=== PATIENT | male | born 1950 | race Caucasian/White ===

== ENCOUNTER → 2024-10-28 | Outpatient (CLI) | payer OTHER ==
--- NOTE | 2024-10-28 15:14 | HMCIMG ---
CT heart saver calcium scoring CT Dose Index (CTDI): 13.80 mGy Dose Length Product (DLP): 173.4 total Findings: Calcium score 0 No identifiable calcification. This CT scan is not a complete chest CT. Covered portion is reviewed for incidental findings. No incidental findings seen. Impression: Calcium score as above. Calcium score reference table: 0: no identifiable calcification 1-10: minimal identifiable calcification 11-100: Mild calcification 101- 400: Moderate calcification 401 and above: Significant calcification Automated exposure control and adaptive statistical iterative reconstruction were utilized as dose reduction techniques.
--- NOTE | 2024-11-04 19:43 | CARDIOLOGY ---
RAD REPORT: CORNMELBETA CT ANGIO RADIOLOGY REPORT: CORONARY CT ANGIOGRAPHY DATE: Nov 04, 2024 QUALITY: Excellent CLINICAL HISTORY AND INDICATION: [coronary artery bypass graft patency ] TECHNIQUE: After obtaining a preliminary customer care associate image, contrast imaging performed on an [employer] [id number] scanner. A dedicated, limited window, coronary imaging protocol was used, with single breath-hold, retrospective ECG gating, and automated arrhythmia rejection. 100 cc of low osmolar contrast agent: Omnipaque 350 was delivered via a 18-gauge IV catheter in the right antecubital fossa, using a power injector and followed by 60 cc of normal saline bolus as a chaser. Collimated images were reformatted at 0.5 mm intervals, and sent to an offline independent workstation for interpretation, using 3D anatomic reconstructions: Curved multiplanar reconstructions, maximum intensity projections, and multiplan ar imaging. No metoprolol was administered prior to scanning due to low baseline heart rate. 0.8 mg SL nitroglycerin was given. CORONARY ARTERY DESCRIPTIONS: The coronary arteries arise in normal position. Left main coronary artery: Normal caliber vessel that bifurcates into the LAD and LCx. No stenosis. Left anterior descending coronary artery: Normal caliber vessel and gives rise to diagonal and septal branches. Severe proximal to mid LAD stenosis. Subtotally occluded ostial to proximal D1. Left circumflex coronary artery: Normal caliber, nondominant and gives rise to a large OM branch. There is calcified plaque in the proximal LCx with 20-30% stenosis. There is mixed calcified and noncalcified plaque in the ostial OM with 70% stenosis. Right coronary artery: Large, dominant vessel giving rise to the PL and PDA branches. There is mixed calcified and noncalcified plaque in the proximal RCA with 50% stenosis. CORONARY ARTERY BYPASS GRAFT DESCRIPTIONS: Patent MONTES DE OCA to LAD. Patent SVG to D1. Thoracic Aorta: Normal diameter. Sharmila Bolton MD [facility] SHARMILA BOLTON MD Nov 04, 2024 19:43
== END | disposition home or self-care (01) ==
LOC: RAH 12:11
PROVIDERS: ATTEND Internal Medicine Cardiovascular Disease
DX: Z13.6 Encounter for screening for cardiovascular disorders (principal); R07.9 Chest pain, unspecified
CPT/HCPCS: 75574